=== PATIENT | female | born 1955 | race Hispanic/Latino ===

== ENCOUNTER 2025-08-03 22:21 | Emergency (ER) | payer SELFPAY ==
[~2025-08-03] VITALS: Ht 152.4 cm; Wt 65.8 kg
--- NOTE | 2025-08-03 22:27 | NUR ---
PATIENT TO CT WITH RN AT THIS TIME
[2025-08-03 22:34] LABS: IMMATURE GRANULOCYTE ABSOLUTE 0.09 K/uL (0-1); NUCLEATED RED BLOOD CELLS 0.0 % (0.0-0.19); PLATELET COUNT (AUTO) 144 K/uL (130-400); RED BLOOD CELL COUNT(AUTO) 4.18 MIL/uL (4.00-5.50); RED CELL DISTRIBUTION WIDTH 13.5 % (11.0-15.5); WHITE BLOOD COUNT (AUTO) 7.2 K/uL (4.8-10.8)
--- NOTE | 2025-08-03 22:34 | NUR ---
RETURNED FROM CT
[2025-08-03] MEDS: 0.9%NACL 1000ML 1,000 ML IV ONE (22:36)
--- NOTE | 2025-08-03 22:39 | ERN ---
ED Note History of Present Illness Stated Complaint: CP, NECK PAIN, BACK PAIN, AMS Chief Complaint: Stroke Symptoms Time Seen by MD: 22:28 Dictation: This is a 70-year-old frail female brought by her daughter to the emergency room stating the 10 minutes prior to the presentation patient complained of neck pain and upper back pain became altered. She was also reportedly profusely diaphoretic. The daughter Prashanth indicated that they were all at a family's republican and patient started complaining a little while before the diaphoresis that she was not feeling well. No nausea vomitings no fever chills or rigors. No diarrhea. No obvious facial asymmetry blurred vision diplopia. Patient became nonverbal acutely and daughter did not know any of her health issues. Eventually the son came by and indicated that patient was recently admitted to [facility] for hypotension. Do not have records to review at this time. Son also indicated that patient is very noncompliant with medications and lifestyle modifications and spends most of the time gambling. Last known well time 2210 hours Blood pressure 181/80, temperature 98.6 pulse 88, respiratory rate 27 pulse oximetry 98% on room air GCS-9 NIH -11 Allergies: Uncoded Allergies: UNKNOWN (Allergy, Unknown, 08/03/25) Past Medical History Past Medical History: Hypertension Surgical History: None Family History: Negative Social History: Negative History: Not Applicable RN Note Reviewed/Agreed w/PFSH: Yes Review of System Dictation Unable to obtain Initial Vital Sign VS Vital Signs Date Time Temp Pulse Resp B/P (MAP) Pulse Ox O2 Delivery O2 Flow Rate FiO2 08/03/25 22:23 98.6 88 27 181/87 92 Room Air 08/03/25 22:30 0 21 Physical Exam Dictation General: Very lethargic opens eyes on stimulation. No apparent distress patient was extremely lethargic to any commands Head/Face: Normocephalic, atraumatic Eyes: PERRL, EOMI, vision at baseline pupils 1-2 mm bilaterally sluggishly reactive ENT: oral cavity clear, TMs clear, no signs of infection Neck: Trachea midline, supple, no nuchal rigidity Cardiovascular: RRR, normal S1/S2, No MRGs, no JVD Respiratory: CTAB, no respiratory distress, No rales or wheezes Abdomen: Soft, non-tender, non-distended, normal bowel sounds, no guarding or rebound. Skin: Warm, dry, normal turgor, no rash MS/Extremity: Pulses equal, no cyanosis, neurovascular intact, FROM Neuro: COAx2, GCS 9, strength 3/5, CN 2-12 intact Extremities-No edema without any palpable cords, Homans sign is negative Results (Laboratory/Radiology) Laboratory/Radiology Laboratory Tests Test 08/03/25 22:26 08/03/25 22:44 08/03/25 22:54 08/04/25 00:58 White Blood Count 7.2 K/uL (4.8-10.8) Red Blood Count 4.18 MIL/uL (4.00-5.50) Hemoglobin 13.1 g/dL (12.0-16.0) Hematocrit 39.4 % (36-48) Mean Corpuscular Volume 94.3 fL (79-99) Mean Corpuscular Hemoglobin 31.3 pg (27.0-33.0) Mean Corpuscular Hemoglobin Concent 33.2 g/dL (32.0-36.0) Red Cell Distribution Width 13.5 % (11.0-15.5) Platelet Count 144 K/uL (130-400) Mean Platelet Volume 9.5 fL (7.5-10.5) Immature Granulocyte % (Auto) 1.3 % (0-1) H Neutrophils (%) (Auto) 46.4 % (40.0-77.0) Lymphocytes (%) (Auto) 44.4 % (21.0-51.0) Monocytes (%) (Auto) 5.8 % (3.0-13.0) Eosinophils (%) (Auto) 1.8 % (0.0-8.0) Basophils (%) (Auto) 0.3 % (0.0-5.0) Neutrophils # (Auto) 3.3 K/uL (1.8-7.7) Lymphocytes # (Auto) 3.2 K/uL (1.0-4.8) Monocytes # (Auto) 0.4 K/uL (0.1-1.0) Eosinophils # (Auto) 0.13 K/uL (0.00-0.70) Basophils # (Auto) 0.02 K/uL (0.00-0.20) Absolute Immature Granulocyte (auto 0.09 K/uL (0-1) Nucleated Red Blood Cells 0.0 % (0.0-0.19) Prothrombin Time 12.5 SEC (9.6-11.6) H Prothromb Time International Ratio 1.20 (0.85-1.15) H Activated Partial Thromboplast Time 26.4 SEC (26.3-35.5) D-Dimer Quantitative (PE/DVT) 1676 ng/mL (0-500) *H Sodium Level 140 mmol/L (136-145) Potassium Level 3.3 mmol/L (3.5-5.1) L Chloride Level 103 mmol/L (101-111) Carbon Dioxide Level 27 mmol/L (21-32) Blood Urea Nitrogen 11 mg/dL (7-18) Creatinine 0.8 mg/dL (0.5-1.0) Glomerular Filtration Rate Calc 79 mL/min (>90) Random Glucose 135 mg/dL (70-105) H Lactic Acid Level 2.4 mmol/L (0.8-2.5) 1.6 mmol/L (0.8-2.5) Total Calcium 8.8 mg/dL (8.5-10.1) Total Creatine Kinase 50 U/L (21-232) Troponin I High Sensitivity 10 ng/L (4-50) B-Type Natriuretic Peptide 57 pg/mL (0-100) LDL Cholesterol 81 mg/dL (0-99) Serum Alcohol < 3 mg/dL (0-10) Urine Color LIGHT-YELLOW (YELLOW) Urine Appearance CLEAR (CLEAR) Urine pH 6.5 (5.0-8.0) Urine Specific [place] 1.018 (1.001-1.031) Urine Protein NEGATIVE mg/dL (NEGATIVE) Urine Glucose (UA) NEGATIVE mg/dL (NEGATIVE) Urine Ketones NEGATIVE mg/dL (NEGATIVE) Urine Occult Blood NEGATIVE (NEGATIVE) Urine Nitrate NEGATIVE (NEGATIVE) Urine Bilirubin NEGATIVE mg/dL (NEGATIVE) Urine Urobilinogen 0.2 mg/dL (0.2-1.0) Urine Leukocyte Esterase 250 Pia/uL (NEGATIVE) H Urine RBC 2-5 /HPF (0-1) H Urine WBC 6-10 /HPF (0-1) H Urine Squamous Epithelial Cells FEW /HPF (0-2) Urine Bacteria RARE /HPF (None Seen) Urine Opiates Screen NEGATIVE (NEGATIVE) Urine Barbiturates Screen NEGATIVE (NEGATIVE) Urine Phencyclidine Screen NEGATIVE (NEGATIVE) Urine Amphetamines Screen NEGATIVE (NEGATIVE) Urine Benzodiazepines Screen NEGATIVE (NEGATIVE) Urine Cocaine Screen NEGATIVE (NEGATIVE) Urine Marijuana (THC) Screen NEGATIVE (NEGATIVE) Blood Gas Specimen Type Arterial Arterial Blood pH 7.446 (7.350-7.450) Arterial Blood Partial Pressure CO2 32 mmHg (32-45) Arterial Blood Partial Pressure O2 92.8 mmHg (83.0-108.0) Arterial Blood HCO3 21.8 mmol/L (21.0-28.0) Arterial Blood Oxygen Saturation 97.4 % (94.0-98.0) Arterial Blood Base Excess -1.3 mmol/L (-2.0-3.0) Blood Gas Temperature 37.0 CELSIUS (35.5-37.0) Blood Gas Flow-by 2.00 L/min (0.00-15.00) Blood Gas Vent Mode 2LNC (ROOM AIR) FiO2 28.0 % Blood Gas Specimen Comment LR KATRN Ammonia 23 umol/L (11-32) Thyroid Stimulating Hormone (TSH) 1.18 uIU/mL (0.36-3.74) Labs Reviewed?: Yes EKG Comment: Twelve lead EKG done on 08/03/2025 at 10:12 p.m. shows a heart rate of 83, QRS 117, QT/QTC 428/502 Impression atrial fibrillation with intraventricular conduction delay incomplete right bundle branch block and prolonged QT interval. EKG rhythm strip shows atrial fibrillation with multiple dropped beats and occasional PACs Interpreted by ER MD Dr. Figueroa ED Course ED Course Orders Procedure Category Date Status Time Vital Signs Per CPOE 08/03/25 Transmitted Routine 22:23 Cardiac Monitoring CPOE 08/03/25 Transmitted 22:23 Bedside Glucose CPOE 08/03/25 Transmitted Fingerstick 22:23 Oxygen By Nc/Pulse Ox CPOE 08/03/25 Transmitted 22:23 Saline Lock Iv CPOE 08/03/25 Transmitted 22:[address] 08/03/25 Transmitted 22:23 Cbc With Differential LAB 08/03/25 Complete 22:23 Partial LAB 08/03/25 Complete Thromboplastin Time 22:23 Prothrombin Time With LAB 08/03/25 Complete INR 22:23 Ct Head/Brain W/O CT 08/03/25 Resulted Contrast 22:23 12 Lead Ekg Tracing- EKG 08/03/25 Complete Technical 22:23 Pulse Ox(Continuous) RT 08/03/25 Transmitted 22:23 Npo W/Aspiration CPOE 08/03/25 Transmitted Precautions 22:23 Complete Nih Stroke CPOE 08/03/25 Transmitted Scale 22:23 Creatine Kinase, Total LAB 08/03/25 Complete 22:23 Troponin I High LAB 08/03/25 Complete Sensitivity 22:23 Ldl Direct LAB 08/03/25 Complete 22:23 Urinalysis Profile LAB 08/03/25 Complete 22:23 Chest 1vw RAD 08/03/25 Resulted 22:23 Nihss Every Shift And CPOE 08/03/25 Transmitted PRN 22:23 Neurological Vs Q4hrs MAKAYLA 08/03/25 Transmitted 22:23 Basic Metabolic Panel LAB 08/03/25 Complete 22:23 0.9%Nacl 1000ml (Ns PHA 08/03/25 Complete 1000ml) 22:30 Naloxone Hcl 0.4 Mg/1 PHA 08/03/25 Complete Ml Ml (Narcan 0.4m 22:30 Naloxone Hcl 0.4 Mg/1 PHA 08/03/25 Complete Ml Ml (Narcan 0.4m 22:25 B-Type Natriuretic LAB 08/03/25 Complete Peptide 22:31 D-Dimer LAB 08/03/25 Complete 22:31 Arterial Blood Gas RT 08/03/25 Transmitted 22:31 Lactic Acid LAB 08/03/25 Complete 22:31 Ct Angio Head And Neck CT 08/03/25 Resulted 22:50 Iohexol (Omnipaque) PHA 08/03/25 Complete 22:52 Arterial Blood Gas LAB 08/03/25 Complete 22:54 Drug Screen Urine LAB 08/03/25 Complete 23:03 Alcohol, Blood LAB 08/03/25 Complete 23:03 Culture Urine VENICE 08/03/25 In Process 23:18 [place] Prov. Neuro CONPHYSVC 08/03/25 Transmitted Consult 23:16 Ceftriaxone 1g Vial PHA 08/04/25 Complete (Rocephine 1g Inj) 00:30 Ammonia LAB 08/04/25 Complete 00:36 Thyroid Stimulating LAB 08/04/25 Complete Hormone 00:36 Ct Chest Pe Protocol CT 08/04/25 Resulted Wwo Cont 00:46 Iohexol (Omnipaque) PHA 08/04/25 Complete 00:53 Ct Abdomen/Pelvis CT 9/22/25 Resulted W/Contrast 00:50 Lactic Acid (Removed) LAB 08/04/25 Complete 01:33 Nurse Driven Moise MAKAYLA 08/04/25 Complete Removal Pro 00:00 Current Medications Medications (Trade) Dose Ordered Sig/Meg Route PRN Reason Start Time Stop Time Status Last Admin Dose Admin Ceftriaxone Sodium (ROCEphine 1G INJ) 1 gm ONCE ONCE IVPB 08/04/25 00:30 08/04/25 00:31 DC 08/04/25 00:31 Iohexol (Omnipaque) 35,000 mg STK-MED ONCE IV 08/03/25 22:52 08/03/25 22:52 DC Iohexol (Omnipaque) 35,000 mg STK-MED ONCE IV 08/04/25 00:53 08/04/25 00:54 DC Naloxone HCl (NARcan 0.4mg/1 mL) 0.4 mg ONCE ONCE IVP 08/03/25 22:30 08/03/25 22:31 DC Naloxone HCl (NARcan 0.4mg/1 mL) 0.4 mg STK-MED ONCE .ROUTE 08/03/25 22:25 08/03/25 22:25 DC 08/03/25 22:29 Sodium Chloride 1,000 ml @ 0 mls/hr Q0M ONCE IV 08/03/25 22:30 08/03/25 22:31 DC 08/03/25 22:36 Vital Signs Date Time Temp Pulse Resp B/P (MAP) Pulse Ox O2 Delivery O2 Flow Rate FiO2 08/04/25 02:05 98.1 70 14 170/83 100 Nasal Cannula* 3 32 08/04/25 01:30 98.6 79 19 166/88 97 Nasal Cannula* 3 32 08/04/25 00:30 98.4 65 22 174/82 98 Nasal Cannula* 3 32 08/03/25 23:30 98.4 70 24 172/81 97 Nasal Cannula* 3 32 08/03/25 22:30 98.6 79 24 181/87 90 Room Air* 0 21 08/03/25 22:23 98.6 88 27 181/87 92 Room Air We will perform diagnostic labs, advanced imaging and administer medications according to the patient's complaint. Once the results are available, will review and personally interpreted the labs to rule out any acute life- threatening emergency the trach require immediate intervention and treatment. I will then re-evaluate the patient after treatment and diagnostic exams have return to determine whether the patient requires any further testing, can safely be discharged home or need further admission to hospital for additional treatment and evaluation. 11:[address] Carmen Beckwith was consulted Patient was accepted by ER physician at [facility] for ER to ER transfer Medical Decision Making MDM Differential diagnosis: Acute cerebrovascular accident, alcohol intoxication or delirium tremens, sepsis, seizure, overdose on any medications, uremia This is a 70-year-old frail female brought by her daughter to the emergency room stating the 10 minutes prior to the presentation patient complained of neck pain and upper back pain became altered. She was also reportedly profusely diaph oretic. The daughter Arcenioda indicated that they were all at a family's republican and patient started complaining a little while before the diaphoresis that she was not feeling well. No nausea vomitings no fever chills or rigors. No diarrhea. No obvious facial asymmetry blurred vision diplopia. Patient became nonverbal acutely and daughter did not know any of her health issues. E ventually the son came by and indicated that patient was recently admitted to [facility] for hypotension. Do not have records to review at this time. Son also indicated that patient is very noncompliant with medications and lifestyle modifications and spends most of the time gambling. Last known well time 2210 hours Blood pressure 181/80, temperature 98.6 pulse 88, respiratory rate 27 pulse oximetry 98% on room air Stroke alert was called at 10:[address] scan of the head and also blood work chest x-ray were all requested 10:[address] angio head and neck was requested. CBC reported as with a normal limits. Rest of all the labs are pending. Preliminary CT scan of the head by my evaluation was negative but questionable parietal area density but we will await radiology report [address] Carmen Beckwith was consulted who evaluated the patient and opined that this may not be CVA. She did not recommend TNKase. 12:00 a.m. ETOH level less than 3 UDS negative BNP 7 showed a potassium of 3.3 glucose 135. Troponins are 10 brain natriuretic peptide is 57 Urinalysis was remarkable for positive leuko esterase and WBCs. Empiric Rocephin given Initiated transfer to [facility] due to lack of neurology services here for further evaluation including EEG and MRI brain. I have been updating the daughter and son at bedside every 15 minutes on the workup so far opinions imaging results etcetera. Rationale: Tests considered and ordered secondary to shared decision making include: labs, ECG and radiology Previous outside records reviewed: Old ER visits. Risk of complication and/or morbidity or mortality of patient management: None Medications-Per medication reconciliation Need for hospitalization: Patient does meet criteria for hospitalization. Need for emergency major/minor surgery: No There are no social concerns with this patient. Prescription drug management Prescriptions will include symptomatic care Patient's prior external medical records from other ER visits were reviewed by me as indicated. Prior testing and results from previous visits were reviewed. Prior tests were taken into account with medical decision making and resource utilization, independent historian/historians were used to obtain complete medical history. I independently interpreted the test that were performed, results were reviewed by me and considered findings on radiology if ordered. Medical management and examination interpretation discussions were had by me with other qualified healthcare professionals as indicated for the patient's care. DUE TO LACK OF NEUROLOGY AVAILABILITY AT THIS FACILITY, PATIENT WILL BE TRANSFE RRED TO [facility]. Problem List Problem List: (1) Acute metabolic encephalopathy (2) Hypertension (3) Pleural effusion (4) Cirrhosis of liver Critical Care Note Critical Time: 60 minutes Comment(s) Life-threatening illness; acute altered mental status, severe diaphoresis, uncontrolled hypertension, major concern for a neurological event or possibly postictal state Risk of morbidity mortality-high Complexity of medical decision making-high (X) high probability of sudden clinically significant deterioration in the p atient's condition required the highest level of my preparedness to intervene urgently. I provided critical care services requiring my direct and personal management as noted below; (x) chart data review (x) reviewing nurse's notes and/charts (x) documentation time (x) consultation collaboration on findings and therapy options (x) medication orders and management (x) re-evaluations (x) care, transfer of care, and discharge plans (x) ordering and interpreting studies (x) ordering and reviewing labs (x) obtaining necessary history from family, EMS, correction, private MD, surrogate decision makers because patient was unable to give history due to limitations in the mental status (x) aggregate critical care time was (64 ) minutes. This includes only time during which I was engaged in work directly related to the patient's care as described above whether at the bedside or elsewhere in the ER while the patient was critical. My time did not include minutes spent treating any other patients simultaneously or on activities that did not directly contribute to the patient's treatment. It did not include time spent performing other reported procedures or services of residents if any. Mitzi KOCP Stroke Patient?: Ischemic Is Patient Candidate for t-PA?: Yes Did the Patient Receive t-PA?: No (Tele neurologist did not believe that it was a CVA) NIH STROKE SCALE: NIH STROKE SCALE Response (Comments) Value Level of Consciousness Not alert/max. to arouse 2 Ask patient month and their age Answers both correct 0 Command to open eyes, make fist and let go Obeys both correct 0 Best gaze (horizontal eye movement) Normal 0 Visual Field Testing No Visual Field Loss 0 Facial Paresis Normal / Symmetrical 0 Motor Function - Left Arm No effort against gravity 3 Motor Function - Right Arm Normal 0 Motor Function - Left Leg No effort against gravity 3 Motor Function - Right Leg No effort against gravity 3 Limb Ataxia No Ataxia 0 Sensory-pin prick to arms, legs, trunk and face Normal 0 Best Language (describe picture, name items and read) Mild to Mod. Aphasia 1 Dysarthria (read several words) Normal Articulation 0 Extinction and Inattention Normal 0 Total 12 DX & DISP Disposition: Transfer Departure Impression: Primary Impression: Acute metabolic encephalopathy Additional Impressions: Hypertension, Pleural effusion, Cirrhosis of liver Condition: Stable Additional Instructions: The patient has been informed about all the diagnostic tests and procedures carried out in the emergency room today and has confirmed understanding of the results. Patient will be transferred to a facility that provides a higher level of care since such services are not accessible locally or within our immediate community. The patient is alert oriented and not experiencing any acute distress. There are no signs of sepsis and patient's hemodynamic status is stable at the moment. Medically, the patient is considered stable for transfer Referrals: NONE (PCP) MITZI FIGUEROA MD Aug 03, 2025 22:39
[2025-08-03 22:52] LABS: INR 1.2 (0.85-1.15)
[2025-08-03] MEDS ORDERED: IOHEXOL 350 MG/ML 100ML INFUS..BTL IV ONE (22:52)
[2025-08-03 22:55] LABS: CREATININE 0.8 mg/dL (0.5-1.0); GLOMERULAR FILTR. RATE CALC 79.0 mL/min (>90); GLUCOSE,RANDOM 135.0 mg/dL (70-105); SODIUM SERUM 140.0 mmol/L (136-145); UREA NITROGEN, BLOOD 11.0 mg/dL (7-18)
[2025-08-03 22:56] LABS: ABG BASE EXCESS -1.3 mmol/L (-2.0-3.0); ABG HCO3 21.8 mmol/L (21.0-28.0); ABG OXYGEN SATURATION 97.4 % (94.0-98.0); ABG PCO2 32 mmHg (32-45); ABG PH 7.446 (7.350-7.450); DEVICE COMMENT LR KATRN; PO2, ARTERIAL BG 92.8 mmHg (83.0-108.0); TEMPERATURE, CELSIUS BG 37.0 CELSIUS (35.5-37.0); VENT MODE, BG 2LNC (ROOM AIR)
[2025-08-03 23:00] LABS: CREATINE KINASE, TOTAL 50.0 U/L (21-232); LDL DIRECT 81.0 mg/dL (0-99)
[2025-08-03 23:15] LABS: APPEARANCE,URINE CLEAR (CLEAR); GLUCOSE, URINE (UA) NEGATIVE (NEGATIVE); LEUKOCYTE ESTERASE ,URINE 250 Leu/uL (NEGATIVE); NITRATE,URINE NEGATIVE (NEGATIVE); OCCULT BLOOD,URINE NEGATIVE (NEGATIVE)
[2025-08-03 23:18] LABS: ADD UA MICROSCOPIC YES
[2025-08-03 23:19] LABS: SQUAMOUS EPITHELIAL CELL,UR FEW /HPF (0-2)
[2025-08-03 23:24] LABS: AMPHET/METH SCREEN,URINE NEGATIVE (NEGATIVE); BARBITURATE SCREEN, URINE NEGATIVE (NEGATIVE); CANNABINOID SCREEN,URINE NEGATIVE (NEGATIVE); COCAINE SCREEN,URINE NEGATIVE (NEGATIVE)
--- NOTE | 2025-08-03 23:29 | HMCIMG ---
EXAM: CT Head Without IV contrast. CLINICAL HISTORY: STROKE /TIA TECHNIQUE: Axial computed tomography images of the head/brain without intravenous contrast. COMPARISON: None provided. FINDINGS: BRAIN: No evidence of acute hemorrhage. No mass lesion. No midline shift or extra-axial collections. VENTRICLES: No hydrocephalus. ORBITS: The orbits are unremarkable. SINUSES AND MASTOIDS: The paranasal sinuses and mastoid air cells are clear. BONES: No fracture. SOFT TISSUES: Unremarkable. IMPRESSION: No acute intracranial abnormality. If the clinical concern persists, recommend an MRI of the brain, including DWI, for further evaluation. /[place]
--- NOTE | 2025-08-04 00:15 | HMCIMG ---
EXAM: CR Chest, 1 view CLINICAL HISTORY: Code stroke. COMPARISON: None provided. FINDINGS: Mild cardiomegaly, pulmonary vascular congestion, and diffuse interstitial edema bilaterally. Small to moderate pleural effusion and mid to lower zone airspace disease on the right side. No pneumothorax. No acute osseous abnormality. Mild osteopenia. Degenerative osseous changes. IMPRESSION: Mild cardiomegaly, pulmonary vascular congestion, and diffuse interstitial edema bilaterally. Small to moderate pleural effusion and mid to lower zone airspace disease on the right side. /[place]
--- NOTE | 2025-08-04 00:18 | HMCIMG ---
EXAM: CTA Head and Neck without and with Intravenous Contrast. CLINICAL HISTORY: Questionable stenosis TECHNIQUE: Axial CTA images of the head and neck were performed. Coronal and sagittal reformatted images were generated and reviewed. CT scan done according to ALARA (As Low as Reasonably Achievable). COMPARISON: None provided. FINDINGS: Anterior cerebral arteries are unremarkable. The anterior communicating artery is opacified. The Middle Cerebral arteries are unremarkable. Posterior communicating arteries are opacified. Posterior cerebral arteries are intact. Vertebral arteries are visualized. The basilar artery is unremarkable. Mild eccentric wall calcification in both carotid bulbs. CCA, Carotid Bulb, ICA, and origin of the ECA are well opacified. Jugular veins are well opacified. No evidence of aneurysm (greater than 4 mm) or arteriovenous lesion. Included great vessels of the aortic arch are grossly unremarkable. Moderate right pleural effusion. Cervical spondylosis. IMPRESSION: No evidence of stenosis, aneurysm, or vascular malformation in the head or neck arteries. Moderate right pleural effusion. /[place]
--- NOTE | 2025-08-04 00:23 | NUR ---
TRANSFER CALL PLACED TO [employer] [employer] TO INITIATE TRANSFER FOR NEURO ICU PT.
[2025-08-04] MEDS ORDERED: IOHEXOL 350 MG/ML 100ML INFUS..BTL IV ONE (00:53)
--- NOTE | 2025-08-04 01:29 | NUR ---
TRANSFER PT. ACCEPTED BY MARIAM SHAW MD FOR TRANSFER TO [facility]. REPORT: [id number]
--- NOTE | 2025-08-04 01:47 | NUR ---
[facility] CALLED FOR TRANSPORT OF MONITORED, NEUROLOGY PT.
[2025-08-04 02:05] VITALS: BP 170/83; PULSE 70; RESP 14; TEMP 98; O2SAT 100
--- NOTE | 2025-08-04 02:17 | NUR ---
REPORT GIVEN TO [facility] AT BEDSIDE. ALL QUESTIONS ANSWERED AT THIS TIME
--- NOTE | 2025-08-04 02:28 | NUR ---
REPORT GIVEN TO MERCED VELAZQUEZ AT [facility]. ALL QUESTIONS ANSWERED AT THIS TIME
--- NOTE | 2025-08-04 02:51 | HMCIMG ---
EXAM: CT Abdomen and Pelvis with IV contrast CLINICAL HISTORY: Pain. TECHNIQUE: Thin collimated axial CT images of the abdomen and pelvis were obtained, with sagittal and coronal reformatted images also submitted. A CT scan is done according to ALARA (As Low As Reasonably Achievable). COMPARISON: None. FINDINGS: Moderate right and small left pleural effusion and lower lobe atelectasis. Mild cardiomegaly. Lobulated hepatic contour, concerning chronic liver parenchymal disease. Mild splenomegaly measures 14 cm in the long axis. No focal abnormality within the gallbladder, pancreas, adrenals, or kidneys. There is no obvious bowel wall thickening. Bowel loops are normal in caliber without evidence of obstruction or ileus. Mild constipation. The appendix is unremarkable. The urinary bladder is partially distended with a Moise???s catheter within. Unremarkable reproductive organs. No lymphadenopathy. Small perihepatic ascites is evident. No pneumoperitoneum. No gross abnormality in the abdominal vessels. There is no acute osseous abnormality. Thoracolumbar spondylosis. IMPRESSIONS: No acute process in the abdomen or pelvis. Liver cirrhosis. Mild splenomegaly. Small perihepatic ascites. /[place]
--- NOTE | 2025-08-04 02:58 | HMCIMG ---
EXAM: CTA examination of the chest CLINICAL HISTORY: Shortness of breath. Elevated d-dimer. TECHNIQUE: Thin collimated axial CTA images of the chest were obtained, and sagittal and coronal reformatted images were also submitted. A CT scan is done according to ALARA (As Low as Reasonably Achievable). COMPARISON: None provided. FINDINGS: Moderate right pleural effusion with compressive atelectasis in the right lower lobe of the lung.. Dependent densities in both lung bases. Small left pleural effusion. Mild pulmonary vascular congestion and diffuse pulmonary edema bilaterally. No pericardial effusion. Mild cardiomegaly. No thoracic aortic aneurysm or dissection. No filling defect or pulmonary thromboembolism. No axillary, supraclavicular, or mediastinal lymphadenopathy. The abdominal findings have been described in the dedicated CT scan of the abdomen and pelvis. No acute or suspicious osseous abnormality. Osteopenia. Thoracic spondylosis. Schmorl's node in the superior endplate of T12. IMPRESSION: No pulmonary thromboembolism. Mild cardiomegaly. Mild pulmonary vascular congestion and diffuse pulmonary edema bilaterally. Moderate right pleural effusion with compressive atelectasis in the right lower lobe of the lung. Small left pleural effusion. /[place]
--- NOTE | 2025-08-04 04:18 | EKG ---
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
== END 2025-08-04 02:20 | disposition short-term general hospital (02) ==
LOC: EDH 22:21 → EDBD 22:21 → EDH 08-04 02:20
DX: G93.41 Metabolic encephalopathy (principal); I10 Essential (primary) hypertension; J90 Pleural effusion, not elsewhere classified; K74.60 Unspecified cirrhosis of liver
CPT/HCPCS: 99291; 70450; 71045; 96361; 96375; 84443; 82550; 83721; 84484; 80048; 82803; 83880; 80305; 82140; 85025; 85378; 85610; 85730; 87086; 83605 ×2; 81001; 36415 ×2; 70496; 70498; 93005; 36600; 71270; 96365; 74177; J2312; J7030; Q9967 ×2; J0696